=== PATIENT | female | born 1985 | race Two or more races ===

== ENCOUNTER 2017-08-21 12:00 | Emergency (ER) | payer OTHER ==
[~2017-08-21] VITALS: Ht 152.4 cm; Wt 70.3 kg
[2017-08-21 12:04] VITALS: BP 119/60
== END 2017-08-21 13:15 | disposition home or self-care (01) ==
LOC: ER 12:02
DX: L76.22 Postprocedural hemorrhage of skin and subcutaneous tissue following other procedure (principal); F10.10 Alcohol abuse, uncomplicated; F17.200 Nicotine dependence, unspecified, uncomplicated; Z41.1 Encounter for cosmetic surgery
CPT/HCPCS: A4606; Z7502; Z7610

== ENCOUNTER 2017-08-23 09:54 | Emergency (ER) | payer OTHER ==
[~2017-08-23] VITALS: Ht 152.4 cm; Wt 70.8 kg
[2017-08-23 09:54] VITALS: BP 139/90
== END 2017-08-23 10:50 | disposition home or self-care (01) ==
LOC: ER 09:58
DX: Z48.02 Encounter for removal of sutures (principal); F10.10 Alcohol abuse, uncomplicated; F17.200 Nicotine dependence, unspecified, uncomplicated; Z41.1 Encounter for cosmetic surgery
CPT/HCPCS: A4606; Z7610

== ENCOUNTER 2017-08-29 12:31 | Emergency (ER) | payer OTHER ==
[~2017-08-29] VITALS: Ht 152.4 cm; Wt 68.0 kg
[2017-08-29 12:38] VITALS: BP 124/87
--- NOTE | 2017-08-29 13:40 | NUR ---
DISREGARD EKG DOCUMENTATION; EKG CANCELED
== END 2017-08-29 13:46 | disposition home or self-care (01) ==
LOC: ER 12:38
DX: Z48.01 Encounter for change or removal of surgical wound dressing (principal); F17.200 Nicotine dependence, unspecified, uncomplicated; Z98.82 Breast implant status
CPT/HCPCS: 99283; A4606; Z7610

== ENCOUNTER 2019-05-24 22:46 | Emergency (ER) | payer OTHER ==
[~2019-05-24] VITALS: Ht 152.4 cm; Wt 69.9 kg
[2019-05-24 23:28] VITALS: BP 121/78
[2019-05-25] MEDS ORDERED: DEXAMETHASONE SOD PHOSPHATE 10 MG/ML VIAL ONE (00:06)
[2019-05-25] MEDS ORDERED: DEXAMETHASONE SOD PHOSPHATE 10 MG/ML VIAL IM ONE (00:30)
== END 2019-05-25 00:35 | disposition home or self-care (01) ==
LOC: ER 22:51
DX: L50.9 Urticaria, unspecified (principal); F17.200 Nicotine dependence, unspecified, uncomplicated; Z98.890 Other specified postprocedural states; Z60.2 Problems related to living alone
CPT/HCPCS: 96372; 99283; J1100

== ENCOUNTER 2019-09-10 23:29 | Emergency (ER) | payer SELFPAY ==
[~2019-09-10] VITALS: Ht 152.4 cm; Wt 60.8 kg
--- NOTE | 2019-09-11 00:05 | NUR ---
PT BIBSELF AAOX4. AMBULATORY. PT C/O VAGINAL DISCHARGE. -ABD PAIN. ON MONITOR AND PULSE OX. NO ACUTE DISTRESS NOTED.
[2019-09-11] MEDS ORDERED: CEFTRIAXONE 500 MG VIAL ONE (00:27)
[2019-09-11] MEDS ORDERED: AZITHROMYCIN 250 MG TABLET ONE (00:27)
[2019-09-11] MEDS ORDERED: AZITHROMYCIN 250 MG TABLET PO ONE (00:30)
[2019-09-11] MEDS ORDERED: CEFTRIAXONE 500 MG VIAL IM ONE (00:30)
[2019-09-11] MEDS ORDERED: LIDOCAINE /MPF 1% VIAL 5 ML VIAL ONE (00:30)
[2019-09-11 00:37] LABS: APPEARANCE,URINE Clear (CLEAR); BILIRUBIN,URINE SMALL (NEGATIVE); BLOOD, URINE Trace-intact Ery/uL (NEGATIVE); COLOR,URINE Yellow (YELLOW); KETONES,URINE Trace (NEGATIVE); LEUKOCYTE ESTERASE ,URINE Small (NEGATIVE); NITRITE, URINE Negative (NEGATIVE); PH,URINE 5.5 (5.0-8.0); PROTEIN,URINE Negative (NEGATIVE); UGLUCOSE Negative (NEGATIVE); UROBILINOGEN,URINE 0.2 EU/dL (0.2)
[2019-09-11 01:04] LABS: WBC,URINE 21-50 /HPF (0-3)
[2019-09-11 01:05] LABS: BACTERIA,URINE Few /HPF (None Seen); MUCUS,URINE Moderate /LPF (None Seen); SQUAMOUS EPITHELIAL CELL,UR Few /HPF (None Seen)
--- NOTE | 2019-09-11 01:29 | NUR ---
Patient discharged to home in stable condition. Written and verbal after care instructions given. Patient verbalizes understanding of instruction and RX. pt ambulatory with a steady gait.
[2019-09-11 01:30] VITALS: BP 126/74
[2019-09-11] MEDS ORDERED: NITROFURANTOIN MACROCRYSTAL 50 MG CAPSULE PO SCH (06:00)
== END 2019-09-11 01:32 | disposition home or self-care (01) ==
LOC: ER 23:30
DX: N89.8 Other specified noninflammatory disorders of vagina (principal); N39.0 Urinary tract infection, site not specified; F10.10 Alcohol abuse, uncomplicated; F17.200 Nicotine dependence, unspecified, uncomplicated; Y90.9 Presence of alcohol in blood, level not specified; Z60.2 Problems related to living alone; Z98.890 Other specified postprocedural states
CPT/HCPCS: 81001; 84703; 87491; 87591; 96372; 99283; J0696; J3490; 81000-TC; 87086-TC

== ENCOUNTER 2019-09-17 13:04 | Emergency (ER) | payer SELFPAY ==
[~2019-09-17] VITALS: Ht 152.4 cm; Wt 60.8 kg
[2019-09-17 13:11] VITALS: BP 117/76
== END 2019-09-17 14:40 | disposition home or self-care (01) ==
LOC: ER 13:08
DX: J02.8 Acute pharyngitis due to other specified organisms (principal); B97.89 Other viral agents as the cause of diseases classified elsewhere; N89.8 Other specified noninflammatory disorders of vagina; B95.0 Streptococcus, group A, as the cause of diseases classified elsewhere; F10.10 Alcohol abuse, uncomplicated; F17.200 Nicotine dependence, unspecified, uncomplicated; Y90.9 Presence of alcohol in blood, level not specified; Z98.890 Other specified postprocedural states; Z60.2 Problems related to living alone
CPT/HCPCS: 86403-TC; 87070-TC; 87491; 87591

== ENCOUNTER 2019-10-02 15:56 | Emergency (ER) | payer SELFPAY ==
[~2019-10-02] VITALS: Ht 152.4 cm; Wt 60.8 kg
[2019-10-02 16:08] VITALS: BP 114/63
[2019-10-02 16:22] LABS: APPEARANCE,URINE Clear (CLEAR); BILIRUBIN,URINE Negative (NEGATIVE); BLOOD, URINE Negative Ery/uL (NEGATIVE); COLOR,URINE Yellow (YELLOW); KETONES,URINE Negative (NEGATIVE); LEUKOCYTE ESTERASE ,URINE Small (NEGATIVE); NITRITE, URINE Negative (NEGATIVE); PH,URINE 7.5 (5.0-8.0); PROTEIN,URINE Negative (NEGATIVE); UGLUCOSE Negative (NEGATIVE); UROBILINOGEN,URINE 0.2 EU/dL (0.2)
[2019-10-02 16:36] LABS: BACTERIA,URINE Few /HPF (None Seen); RBC,URINE 0-2 /HPF (0-2); SQUAMOUS EPITHELIAL CELL,UR Many /HPF (None Seen)
--- NOTE | 2019-10-02 16:58 | NUR ---
PT. VERBALIZED UNDERSTANDING OF AFTERCARE INSTRUCTIONS.Patient discharged to home in stable condition. Written and verbal after care instructions given. Patient verbalizes understanding of instruction.
== END 2019-10-02 16:59 | disposition home or self-care (01) ==
LOC: ER 15:57
DX: R30.0 Dysuria (principal); F17.200 Nicotine dependence, unspecified, uncomplicated; Z98.890 Other specified postprocedural states; Z60.2 Problems related to living alone
CPT/HCPCS: 81000-TC; 84703-TC

== ENCOUNTER 2019-12-26 15:44 | Emergency (ER) | payer MEDICAID ==
--- NOTE | 2019-12-26 15:45 | NUR ---
Called NO response- Hetal
--- NOTE | 2019-12-26 16:00 | NUR ---
Called NO response- Hetal
--- NOTE | 2019-12-26 16:13 | NUR ---
Called NO response- Hetal
--- NOTE | 2019-12-26 16:51 | NUR ---
Was not able to find the pt to perform the exam. After asking two ER staff I was informed that pt already left. No one called the [employer] liaison to notify and save the unnecessary trip
== END 2019-12-26 16:14 | disposition home or self-care (01) ==
LOC: ER 15:47
DX: Z53.21 Procedure and treatment not carried out due to patient leaving prior to being seen by health care provider (principal)

== ENCOUNTER 2022-05-02 20:29 | Emergency (ER) | payer MEDICAID, OTHER ==
[~2022-05-02] VITALS: Ht 152.4 cm; Wt 74.8 kg
--- NOTE | 2022-05-02 20:40 | NUR ---
TO ER BED 16. BIBFRIEND C/O RIGHT SIDED PELVIC PAIN X FEW DAYS. PT AAOX4. AMBULATORY WITH STEADY GAIT. BREATHING IS EVEN AND NON LABORED. CHANGED INTO GOWN. AWAITING MD ORDERS
--- NOTE | 2022-05-02 20:59 | NUR ---
ULTRASOUND AT BEDSIDE
[2022-05-02 21:36] LABS: BILIRUBIN,URINE NEGATIVE (NEGATIVE); COLOR,URINE YELLOW (YELLOW); LEUKOCYTE ESTERASE ,URINE NEGATIVE (NEGATIVE); NITRITE, URINE NEGATIVE (NEGATIVE); PROTEIN,URINE NEGATIVE (NEGATIVE); UGLUCOSE NEGATIVE (NEGATIVE); UROBILINOGEN,URINE 0.2 EU/dL (0.2)
[2022-05-02] MEDS ORDERED: CEFTRIAXONE 500 MG VIAL IM ONE (22:00)
[2022-05-02] MEDS ORDERED: DOXYCYCLINE HYCLATE (100 MG) 100 MG TABLET PO ONE (22:00)
[2022-05-02] MEDS ORDERED: CEFTRIAXONE 500 MG VIAL ONE (22:01)
[2022-05-02] MEDS ORDERED: LIDOCAINE /MPF 1% VIAL 5 ML VIAL ONE (22:01)
[2022-05-02] MEDS ORDERED: DOXYCYCLINE HYCLATE (100 MG) 100 MG TABLET ONE (22:01)
[2022-05-02] MEDS ORDERED: DOXY-326 PO (22:15)
[2022-05-02] MEDS ORDERED: IBUP-1955 PO (22:15)
[2022-05-02] MEDS ORDERED: IBUPROFEN 600 MG TABLET ONE (22:18)
[2022-05-02] MEDS ORDERED: IBUPROFEN 600 MG TABLET PO ONE (22:30)
[2022-05-02 22:34] VITALS: BP 135/77
--- NOTE | 2022-05-02 22:34 | NUR ---
Patient discharged to home in stable condition. Written and verbal after care instructions given. Patient verbalizes understanding of instruction.
== END 2022-05-02 22:34 | disposition home or self-care (01) ==
LOC: ER 20:31
DX: N39.0 Urinary tract infection, site not specified (principal); N83.291 Other ovarian cyst, right side; B34.9 Viral infection, unspecified; Z20.2 Contact with and (suspected) exposure to infections with a predominantly sexual mode of transmission; Z20.822 Contact with and (suspected) exposure to COVID-19
CPT/HCPCS: 99284; 76856; 96372; 84703; 81003; U0003; J0696; J3490; C9803; 87491; 87591

== ENCOUNTER 2022-09-16 09:23 | Emergency (ER) | payer OTHER ==
[~2022-09-16] VITALS: Ht 154.9 cm; Wt 66.7 kg
[~2022-09-16 09:23] MED LIST: DOXY-326 PO; IBUP-1955 PO
[2022-09-16 09:30] VITALS: BP 125/85
[2022-09-16] MEDS ORDERED: CEPH500C2 PO (09:37)
--- NOTE | 2022-09-16 09:43 | NUR ---
Patient discharged to home in stable condition. Written and verbal after care instructions given. Patient verbalizes understanding of instruction.
== END 2022-09-16 09:44 | disposition home or self-care (01) ==
LOC: ER 09:28
DX: Z48.00 Encounter for change or removal of nonsurgical wound dressing (principal); F17.200 Nicotine dependence, unspecified, uncomplicated; Z60.2 Problems related to living alone; Z79.899 Other long term (current) drug therapy

== ENCOUNTER 2022-12-16 10:45 | Emergency (ER) | payer OTHER ==
[~2022-12-16] VITALS: Ht 152.4 cm; Wt 72.6 kg
[~2022-12-16 10:45] MED LIST changes: +CEPH500C2 PO
--- NOTE | 2022-12-16 11:00 | NUR ---
COUGH/COLDS/FEVER X 3 DAYS, L BUTTOCK ABSCESS NOTED YESTERDAY
[2022-12-16] MEDS ORDERED: LIDOCAINE MPF 1%-EPI 1:200,000 30 ML VIAL IJ ONE (11:02)
[2022-12-16] MEDS ORDERED: SULF1TAB48 PO (11:05)
--- NOTE | 2022-12-16 11:07 | NUR ---
MDAT BEDSIDE FOR EVAL
--- NOTE | 2022-12-16 11:10 | NUR ---
Patient discharged to home in stable condition. Written and verbal after care instructions given. Patient verbalizes understanding of instruction.
[2022-12-16 11:11] VITALS: BP 131/81
== END 2022-12-16 11:12 | disposition home or self-care (01) ==
LOC: ER 10:53
DX: L02.416 Cutaneous abscess of left lower limb (principal); F17.200 Nicotine dependence, unspecified, uncomplicated; Z60.2 Problems related to living alone; Z98.890 Other specified postprocedural states; Z79.899 Other long term (current) drug therapy
CPT/HCPCS: 99283; A6403; A6407; J3490

== ENCOUNTER 2023-03-17 09:30 | Emergency (ER) | payer OTHER ==
[~2023-03-17] VITALS: Ht 154.9 cm; Wt 63.5 kg
[~2023-03-17 09:30] MED LIST changes: +SULF1TAB48 PO
--- NOTE | 2023-03-17 09:40 | NUR ---
URINE COLLECTED AND SENT TO LAB
[2023-03-17] MEDS ORDERED: CEFTRIAXONE 500 MG VIAL ONE (10:22)
[2023-03-17] MEDS ORDERED: DOXYCYCLINE HYCLATE (100 MG) 100 MG TABLET ONE (10:22)
[2023-03-17] MEDS ORDERED: LIDOCAINE 1% INJ 50 ML MDV IJ ONE (10:23)
[2023-03-17 10:25] LABS: BILIRUBIN,URINE NEGATIVE (NEGATIVE); COLOR,URINE DARK YELLOW (YELLOW); LEUKOCYTE ESTERASE ,URINE 3+ (NEGATIVE); NITRITE, URINE NEGATIVE (NEGATIVE); PH,URINE 6.5 (5.0-8.0); PROTEIN,URINE NEGATIVE (NEGATIVE); UGLUCOSE NEGATIVE (NEGATIVE); UROBILINOGEN,URINE 0.2 EU/dL (0.2)
[2023-03-17] MEDS ORDERED: CEFTRIAXONE 1 G VIAL IM ONE (10:30)
[2023-03-17] MEDS ORDERED: DOXYCYCLINE HYCLATE (100 MG) 100 MG TABLET PO ONE (10:30)
[2023-03-17 10:37] LABS: WBC,URINE 21-50 /HPF (0-3)
[2023-03-17 10:38] LABS: BACTERIA,URINE Few /HPF (None Seen); SQUAMOUS EPITHELIAL CELL,UR Moderate /HPF (None Seen)
[2023-03-17] MEDS ORDERED: DOXY100T2 PO (10:49)
--- NOTE | 2023-03-17 11:05 | NUR ---
Patient discharged to home in stable condition, ambulating. Written and verbal after care instructions given. Patient verbalizes understanding of instruction.
[2023-03-17 11:06] VITALS: BP 125/71
== END 2023-03-17 11:07 | disposition home or self-care (01) ==
LOC: ER 09:35
DX: N76.0 Acute vaginitis (principal); N30.90 Cystitis, unspecified without hematuria; F17.200 Nicotine dependence, unspecified, uncomplicated; Z60.2 Problems related to living alone; Z79.899 Other long term (current) drug therapy; Z20.822 Contact with and (suspected) exposure to COVID-19
CPT/HCPCS: 99284; 96372; 87086; 84703; 81001; 87491; 87591; J3490; J0696; A6403

== ENCOUNTER 2023-09-06 15:32 | Emergency (ER) | payer OTHER ==
[~2023-09-06] VITALS: Ht 154.9 cm; Wt 75.7 kg
[~2023-09-06 15:32] MED LIST changes: +DOXY100T2 PO
[2023-09-06 16:34] LABS: BASOPHILS % (AUTO) 0.3 % (0.0-2.0); EOSINOPHILS # (AUTO) 0.1 K/uL (0.0-0.7); EOSINOPHILS % (AUTO) 0.7 % (0.0-6.0); HEMATOCRIT 38 % (33-45); HEMOGLOBIN 12.6 g/dL (11.5-14.8); LYMPHOCYTES # (AUTO) 2.6 K/uL (0.8-4.8); LYMPHOCYTES % (AUTO) 18.1 % (20.0-44.0); MEAN CORPUSCULAR HEMOGLOBIN 28 PG (26.0-33.0); MEAN CORPUSCULAR HGB CONC 33 g/dl (31.0-36.0); MEAN CORPUSCULAR VOLUME 85 fL (82-100); MONOCYTES # (AUTO) 0.8 K/uL (0.1-1.30); MONOCYTES % (AUTO) 5.7 % (2.0-12.0); NEUTROPHILS # (AUTO) 10.7 K/uL (1.8-8.9); NEUTROPHILS % (AUTO) 75.2 % (43.0-81.0); PLATELET COUNT (AUTO) 221 K/uL (150-450); RED BLOOD CELL COUNT(AUTO) 4.53 MIL/uL (4.0-5.2); RED CELL DISTRIBUTION WIDTH 15.8 % (11.5-15.0); WHITE BLOOD COUNT (AUTO) 14.2 K/uL (4.3-11.0)
[2023-09-06 16:39] LABS: CALCIUM, SERUM 9.3 mg/dL (8.5-10.1); CREATININE 0.7 mg/dL (0.6-1.3); POTASSIUM 3.6 mmol/L (3.5-5.1)
[2023-09-06 17:06] LABS: ALBUMIN 3.1 g/dL (3.4-5.0); BILIRUBIN,TOTAL 0.2 mg/dL (0.2-1.0); TOTAL PROTEIN, SERUM 7.5 g/dL (6.4-8.2)
[2023-09-06 19:11] VITALS: BP 110/70; TEMP 98.2; O2SAT 99
[2023-09-06 20:25] LABS: APPEARANCE,URINE CLEAR (CLEAR); BILIRUBIN,URINE NEGATIVE (NEGATIVE); BLOOD, URINE NEGATIVE Ery/uL (NEGATIVE); COLOR,URINE YELLOW (YELLOW); KETONES,URINE NEGATIVE (NEGATIVE); LEUKOCYTE ESTERASE ,URINE TRACE (NEGATIVE); NITRITE, URINE NEGATIVE (NEGATIVE); PROTEIN,URINE NEGATIVE (NEGATIVE); UGLUCOSE NEGATIVE (NEGATIVE); UROBILINOGEN,URINE 0.2 EU/dL (0.2)
[2023-09-06 20:38] LABS: ADD URINE CULTURE YES; BACTERIA,URINE 1+ /HPF (None Seen); RBC,URINE 0-2 /HPF (0-2); SQUAMOUS EPITHELIAL CELL,UR Moderate /HPF (None Seen)
== END 2023-09-06 19:12 | disposition home or self-care (01) ==
LOC: ER 15:54
DX: O26.891 Other specified pregnancy related conditions, first trimester (principal); R10.33 Periumbilical pain; R10.2 Pelvic and perineal pain; Z3A.12 12 weeks gestation of pregnancy; F17.200 Nicotine dependence, unspecified, uncomplicated; Z98.890 Other specified postprocedural states; Z79.899 Other long term (current) drug therapy; Z60.2 Problems related to living alone
CPT/HCPCS: 36415; 76700-TC; 76856-TC; 80048-TC; 80076-TC; 81001; 84702-TC; 85025-TC; 87086-TC